=== PATIENT | female | born 1955 | race African-American/Black ===

== ENCOUNTER → 2017-02-27 | Outpatient (CLI) | payer BC ==
[2015-11-07 08:39] VITALS: BP 128/79
--- NOTE | 2017-02-27 10:01 | RAD ---
DATE: 02/27/2017 EXAM: DIGITAL DIAGNOSTIC LT HISTORY: 6 month follow-up COMPARISON: 09/19/2016 This study was interpreted with the benefit of Computerized Aided Detection (CAD). FINDINGS: Breast Density: SCATTERED The breast parenchyma shows scattered fibroglandular densities. Breast parenchyma level B. There has not been a significant change in the appearance of the left breast relative to the previous exam a biopsy clip is noted medially in the breast. No suspect calcifications are seen. IMPRESSION: Stable left breast mammogram. Follow-up bilateral screening suggested 09/19/2017 BI-RADS CATEGORY: 2 BENIGN FINDING(S) RECOMMENDED FOLLOW-UP: 6M 6 MONTH FOLLOW-UP PQRS compliance statement: Patient information was entered into a reminder system with a target due date 09/19/2017 for the next mammogram. Mammography is a sensitive method for finding small breast cancers, but it does not detect them all and is not a substitute for careful clinical examination. A negative mammogram does not negate a clinically suspicious finding and should not result in delay in biopsying a clinically suspicious abnormality. "Our facility is accredited by the [employer] Mammography [employer]."
== END | disposition home or self-care (01) ==
LOC: MAMMO 09:28
PROVIDERS: ATTEND Specialist
DX: R92.8 Other abnormal and inconclusive findings on diagnostic imaging of breast (principal)
CPT/HCPCS: G0206; 77065

== ENCOUNTER → 2017-09-22 | Outpatient (CLI) | payer BC | END | disposition home or self-care (01) | LOC: MAMMO 09:28 | DX: Z12.31 Encounter for screening mammogram for malignant neoplasm of breast (principal) | CPT/HCPCS: 77067 ==

== ENCOUNTER → 2018-09-23 | Outpatient (CLI) | payer OTHER ==
[2015-11-07 08:39] VITALS: BP 128/79
--- NOTE | 2018-09-27 09:29 | RAD ---
DATE: 09/23/2018 11:00 AM EXAM: DIGITAL SCREEN BILAT W/CAD HISTORY: routine screening evaluation. COMPARISON: Prior mammographic imaging dating back to 09/15/2013 Bilateral full field craniocaudal and mediolateral oblique images were obtained using digital technique. This study was interpreted with the benefit of Computerized Aided Detection (CAD ). Breast Density: The breast parenchyma is heterogeneously dense, which could reduce sensitivity of mammography. Breast parenchyma level C. FINDINGS: The parenchymal pattern appears stable. The parenchymal pattern appears stable. A well-circumscribed, gently lobulated mass is seen within the slightly lateral , slightly superior right breast approximately 7.5 cm posterior to the nipple. No suspicious right breast microcalcifications or architectural distortion is seen. No suspicious masses, microcalcifications or architectural distortion is present to suggest malignancy in the left breast. The visualized axillae are unremarkable. IMPRESSION: Right breast mass, findings for which additional imaging is advised. BI-RADS CATEGORY: 0 INCOMPLETE: NEEDS ADDITIONAL IMAGING EVALUATION AND/OR PRIOR MAMMOGRAMS FOR COMPARISON. RECOMMENDED FOLLOW-UP: ADD ADDITIONAL IMAGING. Recommend further evaluation of the right breast mass with spot compression views of the right breast in the CC and MLO projection as well as ultrasound. PQRS compliance statement: Patient information was entered into a reminder system with a target due date of immediate follow-up for the next mammogram. Mammography is a sensitive method for finding small breast cancers, but it does not detect them all and is not a substitute for careful clinical examination. A negative mammogram does not negate a clinically suspicious finding and should not result in delay in biopsying a clinically suspicious abnormality. "Our facility is accredited by the [employer] Mammography [employer]." STACID
== END | disposition home or self-care (01) ==
LOC: MAMMO 08:54
PROVIDERS: ATTEND Family Medicine
DX: Z12.31 Encounter for screening mammogram for malignant neoplasm of breast (principal); N63.11 Unspecified lump in the right breast, upper outer quadrant
CPT/HCPCS: 77067

== ENCOUNTER → 2018-10-06 | Outpatient (CLI) | payer OTHER ==
[2015-11-07 08:39] VITALS: BP 128/79
--- NOTE | 2018-10-06 13:49 | RAD ---
DATE: 10/06/2018 EXAM: MAMMO JUDY ANTHONYG RT, BREAST RIGHT HISTORY: Suspicious screening study COMPARISON: 09/23/2018, 08/24/2009, 09/12/2010 This study was interpreted with the benefit of Computerized Aided Detection (CAD). Breast Density: HETERO The breast parenchyma is heterogenously dense, which could reduce sensitivity of mammography. Breast parenchyma level C. FINDINGS: Additional spot compression views of the area of suspicion laterally in the right breast were obtained as well as CC tomosynthesis imaging. These confirm the presence of a smooth 8mm nodule at the 1-2 o'clock location as best seen on CC tomosynthesis image #48. In retrospect a similar nodule has been intermittently visible on multiple previous studies dating back to 2008. Right breast ultrasound, 10/06/2018: A targeted ultrasound exam of the upper outer quadrant of the right breast was performed. At the 1:30 location there is a small elongated structure with sonographic features of a cyst. It measures 4 mm in greatest diameter. This may correspond to the mammographic abnormality, however, that cannot be stated with certainty. In either event, the mammographically visualized nodule is stable since multiple previous studies indicating a benign etiology. No other sonographic abnormality was identified. IMPRESSION: Benign right breast nodule as described above. Routine yearly mammography is suggested. BI-RADS CATEGORY: 2 BENIGN FINDING(S) RECOMMENDED FOLLOW-UP: 12M 12 MONTH FOLLOW-UP PQRS compliance statement: Patient information was entered into a reminder system with a target due date for the next mammogram. Mammography is a sensitive method for finding small breast cancers, but it does not detect them all and is not a substitute for careful clinical examination. A negative mammogram does not negate a clinically suspicious finding and should not result in delay in biopsying a clinically suspicious abnormality. "Our facility is accredited by the [employer] Mammography [employer]."
== END | disposition home or self-care (01) ==
LOC: MAMMO 12:29
PROVIDERS: ATTEND Family Medicine
DX: N63.12 Unspecified lump in the right breast, upper inner quadrant (principal)
CPT/HCPCS: 76641; 77065; G0279; 77061

== ENCOUNTER → 2019-09-26 | Outpatient (CLI) | payer OTHER ==
[2015-11-07 08:39] VITALS: BP 128/79
--- NOTE | 2019-09-26 16:44 | RAD ---
DATE: 09/26/2019 EXAM: DIGITAL SCREEN BILAT W/CAD HISTORY: Routine screening COMPARISON: 09/19/2016, 09/26/2017, 09/23/2018 mammographic exams This study was interpreted with the benefit of Computerized Aided Detection (CAD). Breast Density: SCATTERED The breast parenchyma shows scattered fibroglandular densities. Breast parenchyma level B. FINDINGS: Benign calcifications are present. No suspicious calcific lesion cluster, mass, or suspicious distortion. IMPRESSION: Stable BI-RADS CATEGORY: 1 NEGATIVE RECOMMENDED FOLLOW-UP: 12M 12 MONTH FOLLOW-UP PQRS compliance statement: Patient information was entered into a reminder system with a target due date for the next mammogram. Mammography is a sensitive method for finding small breast cancers, but it does not detect them all and is not a substitute for careful clinical examination. A negative mammogram does not negate a clinically suspicious finding and should not result in delay in biopsying a clinically suspicious abnormality. "Our facility is accredited by the [employer] Mammography [employer]."
== END | disposition home or self-care (01) ==
LOC: MAMMO 14:10
PROVIDERS: ATTEND Family Medicine
DX: Z12.31 Encounter for screening mammogram for malignant neoplasm of breast (principal); N64.89 Other specified disorders of breast
CPT/HCPCS: 77067

== ENCOUNTER → 2020-09-27 | Outpatient (CLI) | payer MEDICARE, OTHER ==
[2015-11-07 08:39] VITALS: BP 128/79
--- NOTE | 2020-09-27 14:07 | RAD ---
EXAM: Bilateral digital screening mammogram with tomosynthesis. HISTORY: 65-year-old female presents for screening mammography. TECHNIQUE: Full-field digital craniocaudal and mediolateral oblique 2D and 3D tomosynthesis images of both breasts are obtained for evaluation. Computer aided detection was applied. COMPARISON: 09/26/2019 BREAST PARENCHYMAL DENSITY: Level B - Scattered fibroglandular densities. FINDINGS: There is no new suspicious mass, microcalcification or region of architectural distortion. There is stable areas of asymmetry and nodularity within both breasts. IMPRESSION: BI-RADS Category 2: Benign finding(s). RECOMMENDATION: Annual mammography is recommended. If your mammogram demonstrates that you have dense breast tissue, which could hide abnormalities, and if you have other risk factors for breast cancer that have been identified, you might benefit from s upplemental screening tests that may be suggested by your ordering physician. Dense breast tissue, i n and of itself, is a relatively common condition. This information is not provided to cause undue c oncern, but rather to raise your awareness and to promote discussion with your physician regarding th e presence of other risk factors, in addition to dense breast tissue. A report of your mammography re sults will be sent to you and your physician. You should contact your physician if you have any ques tions or concerns regarding this report. Mammography is a sensitive method for finding small breast cancers, but it does not detect them all a nd is not a substitute for careful clinical examination. A negative mammogram does not negate a clin ically suspicious finding and should not result in delay in biopsying a clinically suspicious abnorma lity. PQRS compliance statement - Patient information was entered into a reminder system with a target due date for the next mammogram. "Our facility is accredited by the [employer] Mammography [employer]." Electronically signed by: Deloris Dorantes MD (09/27/2020 2:04 PM) [id number]
== END ==
LOC: MAMMO 12:43
PROVIDERS: ATTEND Internal Medicine
DX: Z12.31 Encounter for screening mammogram for malignant neoplasm of breast (principal)
CPT/HCPCS: 77063; 77067

== ENCOUNTER → 2021-09-30 | Outpatient (CLI) | payer MEDICARE ==
[2015-11-07 08:39] VITALS: BP 128/79
--- NOTE | 2021-10-02 12:13 | RAD ---
Bilateral screening mammogram with tomography dated 09/30/2021. INDICATION: 66 years of age asymptomatic female patient presents for screening mammography. Screening TECHNIQUE: Full field craniocaudal and mediolateral oblique images of both breasts were obtained usi ng digital technique with tomosynthesis and also analyzed with computer-aided detection software. . COMPARISON: 09/23/2018 09/26/2019 09/27/2020. BREAST COMPOSITION: Category B: There are scattered fibroglandular densities. FINDINGS: Biopsy clip at the 9:00 left breast, unchanged. There is also small nodule in the upper outer aspect of the right breast, unchanged. Breast parenchyma is otherwise stable. No suspicious mass or clustere d calcification. No architectural distortion. IMPRESSION: Stable bilateral mammogram. RECOMMENDATION: Annual screening mammography is recommended, unless clinically indicated sooner based on symptoms or change in physical exam. BIRADS 2: BENIGN This study was interpreted with the benefit of Computerized Aided Detection (CAD). Recommend follow-up screening exam in one year. Patient information is entered into the reminder system with a target due date for the next screening mammogram. Mammography is the most sensitive method for finding small breast cancers, but it does not detect the m all and is not a substitute for careful clinical examination. A negative mammogram does not negate a clinically suspicious finding and should not result in delay in biopsying a clinically suspicious a bnormality. "Our facility is accredited by the [employer] Mammography [employer]." Electronically signed by: Aryan Mascorro MD (10/02/2021 12:11 PM) [id number]
== END ==
LOC: MAMMO 10:49
PROVIDERS: ATTEND Internal Medicine
DX: Z12.31 Encounter for screening mammogram for malignant neoplasm of breast (principal)
CPT/HCPCS: 77063; 77067